=== PATIENT | male | born 1965 | race Caucasian/White ===

== ENCOUNTER 2016-12-31 08:10 | Day surgery (SDC) | payer OTHER ==
[2016-12-31 08:14] VITALS: TEMP 97.7
--- NOTE | 2016-12-31 08:23 | EDPHY ---
HPI/HX/ROS/PE/MDM Narrative: CHIEF COMPLAINT: Palpitations HPI: The patient is a 51-year-old male with history of atrial fibrillation who complains of palpitations that started at 7:30 a.m. this morning. The patient was sitting at work and felt arrhythmias. This morning the patient had a 1/2 cup of coffee. No recent drug use. The patient has experienced two previous episodes of atrial fibrillation, both required cardioversion. His last episode was in October 2016. REVIEW OF SYSTEMS: Aside from elements discussed in the HPI, a comprehensive 10-point review of systems was reviewed and is negative. PMH: Atrial fibrillation, GERD SOCIAL HISTORY: . PHYSICAL EXAM: General: Patient is alert, in no acute distress. ENT: Eyes are normal to inspection. ENT inspection normal. Neck: Normal inspection. Full range of motion. Respiratory: No respiratory distress. Breath sounds normal bilaterally. Cardiovascular: Tachycardic, irregularly irregular. Abdomen: The abdomen is nontender to palpation. There are no peritoneal signs. There are normal bowel sounds. Back: Normal to inspection. No tenderness to palpation. Skin: Normal color. No rash. Warm and dry. Extremities: Normal appearance. Full range of motion. Neuro: Oriented x3. Normal motor function. Normal sensory function. ED Course: Patient presents with atrial fibrillation. Rate around the 190s. EKG was ordered and interpreted by myself, atrial fibrillation. Please see [employer] system for official reading. Patient was placed on the executive cyber leader. Patient received 20mg IV Diltiazem, rate decreased to 120s, but continues to jump up to 150s. 0900: I spoke to Kirk from [facility], he will come evaluate the patient. He last ate breakfast at 7:30 a.m. Patient's current rate is in the 120s. 1000: Patient was started on diltiazem drip. Pressure 112/81. MDM: This patient presents in rapid atrial fibrillation, controlled with IV diltiazem. He is hemodynamically stable. There is no evidence for ACS, PE, PTX , CT or thyroid storm. - Data Points Laboratory Results: Laboratory Results 12/31/16 08:30 12/31/16 08:30 12/31/16 12/31/16 12/31/16 08:30 08:30 08:30 WBC 9.18 10^3/uL 10^3/uL (3.80-9.50) RBC 5.36 10^6/uL 10^6/uL (4.40-6.38) Hgb 16.4 g/dL g/dL (13.7-17.5) Hct 46.6 % % (40.0-51.0) MCV 86.9 fL fL (81.5-99.8) MCH 30.6 pg pg (27.9-34.1) MCHC 35.2 g/dL g/dL (32.4-36.7) RDW 13.7 % % (11.5-15.2) Plt Count 409 10^3/uL H 10^3/uL (150-400) MPV 9.4 fL fL (8.7-11.7) Neut % (Auto) 54.3 % % (39.3-74.2) Lymph % (Auto) 31.7 % % (15.0-45.0) [place] % (Auto) 10.9 % % (4.5-13.0) Eos % (Auto) 1.6 % % (0.6-7.6) Baso % (Auto) 1.0 % % (0.3-1.7) Nucleat RBC Rel Count 0.0 % % (0.0-0.2) Absolute Neuts (auto) 4.98 10^3/uL 10^3/uL (1.70-6.50) Absolute Lymphs (auto) 2.91 10^3/uL 10^3/uL (1.00-3.00) Absolute Monos (auto) 1.00 10^3/uL H 10^3/uL (0.30-0.80) Absolute Eos (auto) 0.15 10^3/uL 10^3/uL (0.03-0.40) Absolute Basos (auto) 0.09 10^3/uL 10^3/uL (0.02-0.10) Absolute Nucleated RBC 0.00 10^3/uL 10^3/uL (0-0.01) Immature Gran % 0.5 % % (0.0-1.1) Immature Gran # 0.05 10^3/uL 10^3/uL (0.00-0.10) PT 12.8 SEC SEC (12.0-15.0) INR 0.97 (0.83-1.16) APTT 26.3 SEC SEC (23.0-38.0) Sodium 141 mEq/L mEq/L (134-144) Potassium 4.2 mEq/L mEq/L (3.5-5.2) Chloride 106 mEq/L mEq/L (97-110) Carbon Dioxide 21 mEq/l L mEq/l (22-31) Anion Gap 14 mEq/L mEq/L (8-16) BUN 16 mg/dL mg/dL (7-23) Creatinine 0.8 mg/dL mg/dL (0.7-1.3) Estimated GFR > 60 Glucose 100 mg/dL mg/dL (70-100) Calcium 10.1 mg/dL mg/dL (8.5-10.4) TSH 0.542 uIU/mL uIU/mL (0.465-4.680) Medications Given: Discontinued Medications Diltiazem HCl (Cardizem 25 Mg/5 Ml Vial) 20 mg IVP EDNOW ONE Stop: 12/31/16 08:26 Last Admin: 12/31/16 08:30 Dose: 20 mg Diltiazem HCl 125 mg/ Dextrose 125 mls @ 0 mls/hr IV EDNOW ONE; As Directed PRN Reason: Protocol Stop: 12/31/16 09:33 Last Admin: 12/31/16 10:35 Dose: 125 mls Sodium Chloride (Ns) 1,000 mls @ 0 mls/hr IV ONCE ONE PRN Reason: Wide Open Stop: 12/31/16 10:23 Last Admin: 12/31/16 09:30 Dose: 1,000 mls General Time Seen by Provider: 12/31/16 08:16 Initial Vital Signs: Initial Vital Signs Temperature (C) 36.5 C 12/31/16 08:12 Heart Rate 115 H 12/31/16 08:12 Respiratory Rate 20 12/31/16 08:12 Blood Pressure 116/92 H 12/31/16 08:12 O2 Sat (%) 96 12/31/16 08:12 O2 Delivery Mode Room Air Allergies/Adverse Reactions: No Known Allergies Allergy (Verified 12/31/16 08:11) Home Medications: Medication Instructions Recorded Aspirin [Aspirin 81mg (*)] 81 mg PO DAILY 09/26/15 Esomeprazole Mag Trihydrate 40 mg PO DAILY 09/26/15 [Nexium] Multivitamins [Multivitamin (*)] 1 each PO DAILY 09/26/15 [place]-3 Fatty Acids [Fish Oil 1000 1,000 mg PO DAILY 09/26/15 mg (*)] Departure - Departure Disposition: To OP Cath/Surgery Clinical Impression: Atrial fibrillation Qualifiers: Atrial fibrillation type: unspecified Qualified Code(s): I48.91 - Unspecified atrial fibrillation Condition: Fair Report Scribed for: Jomar Erazo Report Scribed by: Genoveva Corrigan Date of Report: 12/31/16 Time of Report: 08:21 Physician Review and Approval Statement: Portions of this note were transcribed by a medical detail representative. I personally performed a history, physical exam, medical decision making, and confirmed accuracy of information the transcribed note.
[2016-12-31] MEDS ORDERED: DILTIAZEM 25 MG/5 ML VIAL IVP ONE (08:25)
--- NOTE | 2016-12-31 08:25 | CPEKG ---
Heart Rate: 166 RR Interval: 361 QRSD Interval: 70 QT Interval: 284 QTC Interval: 473 QRS [place]: 19 T Wave [place]: 66 EKG Severity - ABNORMAL ECG - EKG Impression: ATRIAL FIBRILLATION WITH RAPID V-RATE EKG Impression: VENTRICULAR PREMATURE COMPLEX EKG Impression: ST DEPRESSION, PROBABLY RATE RELATED EKG Impression: ATRIAL FIBRILLATION IS NEW IN COMPARISON TO PRIOR (26-SEP-15) Electronically Signed By: Jorge Mahmood 01-Jan-2017 09:06:18
[2016-12-31 08:43] LABS: % IMMATURE GRANULYOCYTES 0.5 % (0.0-1.1); ABSOLUTE IMMATURE GRANULOCYTES 0.05 10^3/uL (0.00-0.10); ADD DIFF? NO; ADD MORPH? NO; ADD SCAN? NO; ATYPICAL LYMPHOCYTE FLAG 20 (0-99); FRAGMENT RBC FLAG 0 (0-99); HEMATOCRIT 46.6 % (40.0-51.0); HEMOGLOBIN 16.4 g/dL (13.7-17.5); LEFT SHIFT FLG 0 (0-99); LIPEMIA HEMOLYSIS FLAG 90 (0-99); MEAN CELL HEMOGLOBIN 30.6 pg (27.9-34.1); MEAN CELL HEMOGLOBIN CONCENTR. 35.2 g/dL (32.4-36.7); MEAN CELL VOLUME 86.9 fL (81.5-99.8); MEAN PLATELET VOLUME 9.4 fL (8.7-11.7); PLATELET CLUMPS FLAG 10 (0-99); PLATELET COUNT 409 10^3/uL (150-400); RED BLOOD CELL COUNT 5.36 10^6/uL (4.40-6.38); RED CELL DISTRIBUTION WIDTH 13.7 % (11.5-15.2)
[2016-12-31 08:45] VITALS: RESP 16
[2016-12-31 08:51] LABS: INR 0.97 (0.83-1.16); PROTIME(PATIENT) 12.8 SEC (12.0-15.0)
[2016-12-31 08:52] LABS: APTT 26.3 SEC (23.0-38.0)
[2016-12-31 09:10] LABS: ANION GAP 14 mEq/L (8-16); CALCIUM 10.1 mg/dL (8.5-10.4); CARBON DIOXIDE 21 mEq/l (22-31); CHLORIDE 106 mEq/L (97-110); CREATININE 0.8 mg/dL (0.7-1.3); GLOMERULAR FILTRATION RATE > 60; GLUCOSE 100 mg/dL (70-100); POTASSIUM 4.2 mEq/L (3.5-5.2); SODIUM 141 mEq/L (134-144)
[2016-12-31] MEDS: DILTIAZEM 125 MG in D5W 125 ML IV ONE ×3 (10:03→10:35)
[2016-12-31] MEDS ORDERED: NS 1,000 ML IV ONE (10:22)
[2016-12-31] MEDS ORDERED: NS 1,000 ML IV SCH (10:30)
[2016-12-31] MEDS ORDERED: APIXABAN 5 MG TAB PO SCH (11:00)
--- NOTE | 2016-12-31 12:29 | GCON ---
[f rep st] CONSULTATION CARDIOLOGY CONSULTATION. INDICATION FOR CARDIOLOGY CONSULTATION: Atrial fibrillation with rapid ventricular response. HISTORY OF PRESENT ILLNESS: The patient is a 51-year-old male with known history of paroxysmal atrial fibrillation. First initial event was September 2015. He reports today, he was in his normal state of health. He had gone to work, just sat down after eating a mild breakfast and starting a half cup of coffee, felt his heart rate accelerate fairly quickly, similar symptoms to what he had in the past. Denies any chest pain or pressure. Reports no lightheadedness, near-syncope, or syncopal events. Due to feeling these similar symptoms of when he was in atrial fibrillation in the past, he came to the emergency department for further evaluation. Upon arrival, electrocardiogram was done, showing that he was in atrial fibrillation with RVR. It has been noted on continuous telemetry that he has had rates up to 190 BPM. He was initially given some IV diltiazem and started on an IV drip. He currently reports no chest pain or shortness of breath. In the past, during his initial event, he did have an echocardiogram done, that was done on September 26, 2015, which showed hyperdynamic LV, EF of 80%, no regional wall motion abnormalities, RV normal size and function, LA and RA normal size, trace TR, RVSP within normal limits. He reports after his most recent episode of atrial fibrillation, October of this year, he was seen at [facility] Emergency Department. He did follow up with Cardiology there, Dr. Solange Cedeño. He did undergo stress testing, which he was told normally. He has not seen her for followup, and he was planning to do a 2-week event monitor, in which the monitor failed, and he has not had any further followup. He also has history last year of undergoing a 30-day monitor , with no significant arrhythmias. As for a CHADS-VASc score, he is considered a zero, he reports. Cardiac risk factors include age and previous smoker. PAST MEDICAL HISTORY: Includes GERD and paroxysmal atrial fibrillation. PAST SURGICAL HISTORY: Cholecystectomy, 2 hospitalizations for atrial fibrillation with RVR, in which he has had LAI, cardioversions for. FAMILY HISTORY: Patient reports no significant family history of coronary artery disease. He reports he never knew his father; so he is uncertain about his paternal family side's history. SOCIAL HISTORY: Patient reports he previously used tobacco but has quit for greater than 20 years. He occasionally has 1 to 2 alcoholic beverages a week. Denies any illicit drug use. He does report a significant amount of coffee intake, reporting up to 4 cups on a daily basis. He is retired [employer]. He is currently working for the [employer] [facility] [employer] [facility]'s [employer] program. He has 3 grown children, who have no medical problems, and 2 grandchildren. He denies any illicit drug use. ALLERGIES: Patient has no known drug allergies. HOME MEDICATIONS: Aspirin 81 mg p.o. q. day, Nexium 40 mg p.o. daily, multivitamin 1 tab daily, and [place]-3 fatty acids 1000 mg p.o. daily. REVIEW OF SYSTEMS: Ten-point review of systems done on this patient all negative, except as mentioned above. PHYSICAL EXAMINATION: GENERAL APPEARANCE: Medium built, well-groomed male. He is alert and oriented to person, place, time, and situation. Appears to be under no acute distress. VITAL SIGNS: Blood pressure 115/93, heart rate of 153 (atrial fibrillation on the monitor), respirations 16, saturating 96% on room air. HEENT: Head is normocephalic. Lips and tongue are pink and moist with no signs of cyanosis. Conjunctivae pink. NECK: Trachea is midline, +2 carotid pulses bilateral. No auscultated bruits. No jugular vein distention. RESPIRATORY: Lungs clear to auscultation. No rhonchi, rales, or wheezes. No accessory muscle use. No intercostal muscle retraction noted. CARDIAC: Tachy rate, irregular rhythm. S1, S2. No S3, S4, gallops, rubs, or murmur noted. ABDOMEN: Soft, nontender. Bowel sounds x4 quadrants. No organomegaly, no palpable masses. SKIN: [place], warm, dry. No cyanosis, no clubbing, no peripheral edema. VASCULAR: Carotids +2 bilateral, +2 radials bilateral, +2 posterior tibial pulses bilateral. LABORATORY STUDIES: Drawn today show WBC 9.18, hemoglobin is 16.4, hematocrit of 46.6, platelet count 409. INR of 0.97. Sodium 141, potassium 4.2, chloride 106, CO2 21, BUN 16, creatinine 0.8, glucose of 100, calcium 10.1. TSH 0.542. STUDIES: Electrocardiogram done on admission showed atrial fibrillation with rapid ventricular response. Ventricular rate has been noted up to 190 beats per minute. Previous echocardiogram, done on September 26, 2015, showing hyperdynamic LV with EF at 80%, no regional wall motion abnormalities, RV normal size and function, LA size is normal, RA size is normal, trace TR, RVSP within normal limits. No other significant valvular or structural heart disease noted. ASSESSMENT AND PLAN: Atrial fibrillation with rapid ventricular response. The patient is known to have paroxysmal atrial fibrillation. Laboratory studies show that he is not anemic. His electrolytes and renal function within normal limits. TSH within normal limits. We will have him get a magnesium level, which has not been drawn today. Patient has eaten at 8 o'clock. He has reported that he has had 2 prior admissions in which medication has been tried to convert, which he has had no success for. He has currently had a diltiazem bolus, and he is being up-titrated on a Cardizem drip. He did eat around 7:30 this morning. Patient reports that he does not want to stay the night to see if medication therapy works. We will offer him to undergo LAI cardioversion later this afternoon around 4 p.m., after he has been n.p.o. for 8 hours, which he is agreeable with. He has a CHADS-VASc score of zero. I do think it would be valid, but due to him getting a cardioversion and recent episodes of atrial fibrillation, we will plan on starting him on anticoagulation with Eliquis. We will plan for him to be on this medication for 30 days postcardioversion due to being at a high risk of thrombotic event after cardioversion. I have requested that we get his recent stress test from [facility] for evaluation. Patient has never been placed on any AV minoo agents after either prior 2 episodes of atrial fibrillation. We will consider starting him on oral diltiazem after cardioversion, if successful. We will plan for the patient to be transferred up to the [facility] for the procedure. Risks and benefits of LAI/ cardioversion explained to both patient and his , and they verbalize understanding and are wanting to proceed. Thank you for this consultation. More recommendations will come up post- cardioversion. /[id number]/MODL MTDD
[2016-12-31 12:38] VITALS: BP 107/67; PULSE 91; O2SAT 95
[2016-12-31] MEDS ORDERED: ATROPINE SULFATE 1 MG/10 ML SYR ONE (13:25)
[2016-12-31] MEDS ORDERED: LIDOCAINE 1% 5 ML SDV ONE (17:25)
[2016-12-31] MEDS ORDERED: PROPOFOL 200 MG/20 ML VIAL ONE (17:25)
--- NOTE | 2016-12-31 18:10 | CPIP ---
[f rep st] INVASIVE CARDIAC PROCEDURE DATE OF PROCEDURE: 12/31/2016 PROCEDURE: LAI cardioversion. INDICATION: Atrial fibrillation. ANESTHESIA: Please see Anesthesia report. CONSENTS: Signed and in front of chart. SPECIFICS: 1. LAI probe was advanced and images obtained. There is no evidence of thrombus in the left atrium or left atrial appendage. Left atrial appendage velocities were greater than 20 cm/second. 2. Pads were placed in the anterior-posterior position. 3. Two hundred joules synchronized was delivered x1 with return to normal sinus rhythm. COMPLICATIONS: None. CONCLUSIONS: 1. No evidence of left atrial or left atrial appendage thrombus. 2. Status post successful DC cardioversion to normal sinus rhythm with 200 joules. /[id number]/MODL
[2016-12-31] MEDS ORDERED: DILTIAZEM CD 180 MG CAP PO ONE (18:15)
== END 2016-12-31 19:05 | disposition home or self-care (01) ==
LOC: FCATH 13:01
PROVIDERS: ATTEND Internal Medicine Cardiovascular Disease
PROC: 5A2204Z Restoration of Cardiac Rhythm, Single (ICD-10-PCS; principal; 2016-12-31)
DX: I48.91 Unspecified atrial fibrillation (principal)
CPT/HCPCS: 96374; J0461; J2704

== ENCOUNTER 2017-03-27 05:15 | Observation (INO) | payer OTHER ==
--- NOTE | 2017-03-27 05:21 | EDPHY ---
H & P HPI/ROS: HPI CHIEF COMPLAINT: Palpitations HISTORY OF PRESENT ILLNESS: This patient very pleasant 51-year-old male, he is otherwise healthy significant past medical history for atrial fibrillation, he is not on any anticoagulation. He has had previous LAI cardioversion speech. He presents emergency room palpitations started around 1030 last night he thinks. He tried to sleep most of the night last night to see will go away. He did take a baby aspirin in additionally diltiazem dose. He is not on any anticoagulation. Does state he had some shortness of breath associated with this. No significant chest pain. He states he thinks he is in atrial fibrillation as he is irregular fast heart rate. Past Medical History: History of atrial fibrillation status post cardioversion , GERD Past Surgical History: Cholecystectomy Social History: Denies daily use of drugs alcohol tobacco products. Family History: Denies any significant family cardiovascular disease ROS REVIEW OF SYSTEMS: A comprehensive 10 point review of systems is otherwise negative aside from elements mentioned in the history of present illness. Exam Constitutional triage nursing summary reviewed, vital signs reviewed, awake/ alert. Eyes normal conjunctivae and sclera, EOMI, PERRLA. HENT normal inspection, atraumatic, moist mucus membranes, no epistaxis, neck supple/ no meningismus, no raccoon eyes. Respiratory clear to auscultation bilaterally, normal breath sounds, no respiratory distress, no wheezing. Cardiovascular irregular, irregular rhythm, no murmur, no edema, distal pulses normal. Gastrointestinal soft, non-tender, no rebound, no guarding, normal bowel sounds, no distension, no pulsatile mass. Genitourinary no CVA tenderness. Musculoskeletal no midline vertebral tenderness, full range of motion, no calf swelling, no tenderness of extremities, no meningismus, good pulses, neurovascularly intact. Skin pink, warm, & dry, no rash, skin atraumatic. Neurologic awake, alert and oriented x 3, AAOx3, moves all 4 extremities equally, motor intact, sensory intact, CN II-XII intact, normal cerebellar, normal vision, normal speech. Psychiatric normal mood/affect. Heme/Lymph/Immune no lymphadenopathy. 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 Re-evaluate. Re-evaluation: EKG interpretation by me on record in [employer] system. Impression time of EKG 5:32 a.m., this is AFib rate of 115. AFib with RVR. I dont appreciate acute ischemic change. 0611AM: Patient is currently on a diltiazem drip heart rate in the 90s. Fluctuates to low 100s. He did come in with a heart rate of 122. AFib. He is not on anticoagulation. Will attempt rate control at this time. He will be admitted to the hospital for AFib with RVR. Will most likely need echocardiogram and possible cardioversion. Cardiology to see. ED x-ray chest one view: Negative for acute cardiopulmonary disease. 0647AM: Patient agrees for hospital admission. Reason for admission AFib with RVR. Not on any anticoagulation. Currently being rate controlled on diltiazem but still in AFib. Dr. Moise has accepted. Source: Patient - Medical/Surgical History Hx Asthma: No Hx Chronic Respiratory Disease: No Hx Diabetes: No Hx Cardiac Disease: Yes Hx Renal Disease: No Hx Cirrhosis: No Hx Alcoholism: No Hx HIV/AIDS: No Hx Splenectomy or Spleen Trauma: No Other PMH: GERD afib - Social History Smoking Status: Former smoker Constitutional: Initial Vital Signs Temperature (C) 36.4 C 03/27/17 05:20 Heart Rate 102 H 03/27/17 05:20 Respiratory Rate 16 03/27/17 05:20 Blood Pressure 110/83 H 03/27/17 05:20 O2 Sat (%) 96 03/27/17 05:20 O2 Delivery Mode Nasal Cannula O2 (L/minute) 2 Allergies/Adverse Reactions: No Known Allergies Allergy (Verified 03/27/17 05:18) Home Medications: Medication Instructions Recorded Multivitamins [Multivitamin (*)] 1 each PO DAILY 09/26/15 Diltiazem HCl [Diltiazem 24Hr Cd] 240 mg PO DAILY 12/31/16 Aspirin EC [Aspirin EC 81 mg (*)] 81 mg PO DAILY 03/27/17 Omeprazole 40 mg PO DAILY 03/27/17 Medical Decision Making - Data Points Laboratory Results: Laboratory Results 03/27/17 05:40 03/27/17 05:40 Medications Given: Discontinued Medications Diltiazem HCl (Cardizem 25 Mg/5 Ml Vial) 15 mg IVP EDNOW ONE Stop: 03/27/17 05:33 Last Admin: 03/27/17 05:45 Dose: 15 mg Sodium Chloride (Ns) 1,000 mls @ 0 mls/hr IV EDNOW ONE; Wide Open PRN Reason: Protocol Stop: 03/27/17 05:31 Last Admin: 03/27/17 05:44 Dose: 1,000 mls Diltiazem HCl 125 mg/ Dextrose 125 mls @ 0 mls/hr IV EDNOW ONE; As Directed PRN Reason: Protocol Stop: 03/27/17 05:33 Last Admin: 03/27/17 05:49 Dose: 125 mls Pantoprazole Sodium (Protonix) 40 mg PO DAILY [facility] Stop: 09/23/17 08:59 Last Admin: 03/27/17 09:37 Dose: 40 mg Departure - Departure Disposition: [facility] Clinical Impression: Atrial fibrillation with RVR Atrial fibrillation Qualifiers: Atrial fibrillation type: unspecified Qualified Code(s): I48.91 - Unspecified atrial fibrillation Condition: Good
[2017-03-27] MEDS ORDERED: NS 1,000 ML IV ONE (05:30)
[2017-03-27] MEDS ORDERED: DILTIAZEM 125 MG in D5W 125 ML IV ONE (05:32)
[2017-03-27] MEDS ORDERED: DILTIAZEM 25 MG/5 ML VIAL IVP ONE (05:32)
--- NOTE | 2017-03-27 05:34 | CPEKG ---
Heart Rate: 115 RR Interval: 522 QRSD Interval: 68 QT Interval: 332 QTC Interval: 460 QRS [place]: 26 T Wave [place]: 50 EKG Severity - ABNORMAL ECG - EKG Impression: ATRIAL FIBRILLATION, V-RATE 72-150 Electronically Signed By: Tom Casas 27-Mar-2017 07:35:46
[2017-03-27 05:56] LABS: % IMMATURE GRANULYOCYTES 0.5 % (0.0-1.1); ABSOLUTE IMMATURE GRANULOCYTES 0.04 10^3/uL (0.00-0.10); ADD DIFF? NO; ADD MORPH? NO; ADD SCAN? NO; ATYPICAL LYMPHOCYTE FLAG 10 (0-99); FRAGMENT RBC FLAG 0 (0-99); HEMATOCRIT 47.6 % (40.0-51.0); LEFT SHIFT FLG 0 (0-99); LIPEMIA HEMOLYSIS FLAG 90 (0-99); MEAN CELL HEMOGLOBIN 30.6 pg (27.9-34.1); MEAN CELL HEMOGLOBIN CONCENTR. 35.7 g/dL (32.4-36.7); MEAN CELL VOLUME 85.6 fL (81.5-99.8); MEAN PLATELET VOLUME 9.3 fL (8.7-11.7); PLATELET CLUMPS FLAG 0 (0-99); PLATELET COUNT 426 10^3/uL (150-400); RED BLOOD CELL COUNT 5.56 10^6/uL (4.40-6.38); RED CELL DISTRIBUTION WIDTH 13.3 % (11.5-15.2)
[2017-03-27 05:59] VITALS: O2SAT 98
[2017-03-27 06:07] LABS: ALANINE AMINOTRANSFERASE 78 IU/L (21-72); ALBUMIN 4.5 g/dL (3.5-5.0); ALKALINE PHOSPHATASE 88 IU/L (38-126); ANION GAP 15 mEq/L (8-16); ASPARTATE AMINOTRANSFERASE 41 IU/L (17-59); BILIRUBIN,TOTAL 0.7 mg/dL (0.1-1.4); BILIRUBIN-CONJUGATED 0.2 mg/dL (0.0-0.5); BILIRUBIN-UNCONJUGATED 0.5 mg/dL (0.0-1.1); CALCIUM 10.1 mg/dL (8.5-10.4); CARBON DIOXIDE 22 mEq/l (22-31); CHLORIDE 106 mEq/L (97-110); CREATININE 0.9 mg/dL (0.7-1.3); GLOMERULAR FILTRATION RATE > 60; GLUCOSE 109 mg/dL (70-100); MAGNESIUM 2.1 mg/dL (1.6-2.3); POTASSIUM 4.2 mEq/L (3.5-5.2); SODIUM 143 mEq/L (134-144); TOTAL PROTEIN 7.8 g/dL (6.3-8.2)
[2017-03-27 06:11] LABS: INR 0.98 (0.83-1.16); PROTIME(PATIENT) 12.9 SEC (12.0-15.0)
[2017-03-27 06:12] LABS: APTT 27.8 SEC (23.0-38.0)
[2017-03-27 06:19] LABS: CREATINE KINASE-MB FRACTION 0.88 ng/mL (0.00-3.19); TROPONIN I < 0.012 ng/mL (0.000-0.034)
[2017-03-27] MEDS ORDERED: ONDANSETRON 4 MG/2 ML VIAL IVP PRN (07:50)
[2017-03-27] MEDS ORDERED: LORazepam 0.5 MG TAB PO PRN (07:50)
[2017-03-27] MEDS ORDERED: ONDANSETRON DISINTEGRATING 4 MG TAB PO PRN (07:50)
[2017-03-27] MEDS ORDERED: ACETAMINOPHEN 325 MG TAB PO PRN (07:50)
[2017-03-27] MEDS ORDERED: NS 1,000 ML IV SCH (08:00)
[2017-03-27] MEDS ORDERED: DILTIAZEM 125 MG in D5W 125 ML IV SCH (08:00)
[2017-03-27 08:22] VITALS: BP 106/65; PULSE 77; RESP 14; TEMP 97.9
--- NOTE | 2017-03-27 08:40 | GHP ---
[f rep st] HISTORY AND PHYSICAL DATE OF ADMISSION: 03/27/2017 SOURCE: Patient provides history, appears reliable. His EMR was also reviewed and case discussed wi th ED provider. CHIEF COMPLAINT: Palpitations. HISTORY OF PRESENT ILLNESS: This is a very pleasant 51-year-old gentleman with past medical history significant for atrial fibrillation, status post 4 attempts at cardioversion, presents to the emergen cy department today with complaints of palpitations that started approximately 10:30 at night. Ritikashirley nt reports that he was going to bed when he started to experience symptoms. He denies any associated chest pain, lightheadedness, nausea, vomiting, or diaphoresis. He does note this slight shortness o f breath. The patient states that he took a dose of aspirin, and an additional dose of diltiazem megan or to going to bed, in hopes that his heart rate would remain under control. He chronically does lisa e diltiazem 180 mg p.o. daily, but is not on any chronic anticoagulation. The patient states that hi s last cardioversion occurred in December, and has not had any symptoms up until today. REVIEW OF SYSTEMS: GENERAL: Patient denies any fevers, chills. SKIN: No rashes, sores. ENT: No sore throat, rhinorrhea. CV: Palpitations. No chest pain. As above. RESPIRATORY: Mild intermittent shortness of breath, but no cough. GI: No nausea, vomiting, abdominal pain, diarrhea. : No dysuria or hematuria. MUSCULOSKELETAL: Patient denies any joint pain or myalgias. NEURO: Patient denies any headache, numbness, or tingling. The remainder of systems is negative, ex cept as noted above. ALLERGIES: No known drug allergies. HOME MEDICATIONS: Fish oil 1000 mg p.o. daily, multivitamin 1 tab p.o. daily, diltiazem 180 mg p.o. daily. PAST MEDICAL HISTORY: Significant for atrial fibrillation. PAST SURGICAL HISTORY: Significant for LAI and cardioversion x4, cholecystectomy. FAMILY HISTORY: The patient denies any known coronary artery disease. Parents and children are all healthy. SOCIAL HISTORY: Patient is . Denies any tobacco or drug use. He has very rare alcohol intak e. CODE STATUS: Full. Patient without advance directives, wants his to act as proxy. PHYSICAL EXAM: VITAL SIGNS: On arrival, blood pressure 106/76, heart rate on presentation was 120s to 130s, respiratory rate 18, O2 saturation 98% on 2 L by nasal cannula. Current vitals: Temperatur e 36.0, blood pressure 103/72, heart rate 80, respiratory rate 16, O2 saturation 98% on 2 L by nasal cannula. GENERAL: No acute distress, pleasant adult male, resting comfortably on gurney, the i s at bedside. HEAD: Normocephalic atraumatic. EYES: Extraocular muscles are intact. Pupils equal , round, reactive to light bilaterally and symmetric. No scleral icterus or conjunctival injection. ENT: Mucous membranes are moist. No pharyngeal erythema or exudates. CV: Irregularly irregular r hythm with normal rate in the 80s. No murmurs, rubs, or gallops appreciated. RESPIRATORY: Lungs cl ear to auscultation bilaterally. No wheezes, rales, or rhonchi. ABDOMEN: Positive bowel sounds. S oft, nontender to palpation. No rebound, guarding, or masses. : No Linares in place. No suprapubi c tenderness to palpation. EXTREMITIES: No cyanosis, clubbing, or edema. 2+ pedal pulses. MUSCULO SKELETAL: Strength 5/5 in upper and lower extremities. Patient able to sit up independently. NEURO : Grossly nonfocal exam, without any facial drooping or changes in strength. PSYCH: Patient is awake, alert, and oriented x3. Thought process, content and questions are appropriate. LABORATORY STUDIES: WBC is 8.75, H and H 17.0, 47.6, MCV 85.6, platelet count of 426. No bands. PT is 12.9, INR 0.9, APTT is 27.8. Sodium 143, potassium 4.2, chloride 106, CO2 22, BUN is 11, creat inine 0.9, GFR is greater than 60. Glucose 109, calcium 10.1, magnesium 2.1. Total bilirubin 0.7, t otal protein 7.8, albumin 4.5, ALT is 78, AST is 41, alk phos 88. CK 73, CK-MB 8.88, and troponin le ss than 0.012. BNP is 120. EKG, reviewed myself, significant for atrial fibrillation, rate 1-teens. Chest x-ray, image reviewed myself. Report is pending. No gross abnormalities. ASSESSMENT/PLAN: A pleasant 51-year-old gentleman with history of atrial fibrillation, who presents with palpitations. 1. Atrial fibrillation with rapid ventricular response. The patient has received a bolus dosing of Cardizem in the emergency department and a Cardizem drip. We will plan to continue. Consult Cardiol kaylan. He is not currently on any chronic anticoagulation, and again we will also discuss with Cardiol kaylan. Blood pressures at this time appear to tolerate the Cardizem drip, and we will continue to alexander tor. We will give patient a little bit of IV fluid hydration, in addition to the Cardizem drip. He will remain n.p.o. for now, pending consideration for Cardiology, regarding if additional cardioversi on is appropriate. Electrolyte replacement if needed, but currently within normal limits. 2. Prophylaxis, SCDs, and discussion on anticoagulation with Cardiology as above. 3. Code status is full. 4. Disposition: Patient admitted to observation on PCU. /[id number]/MODL
[2017-03-27] MEDS ORDERED: PANTOPRAZOLE SODIUM 40 MG TAB PO SCH (09:00)
--- NOTE | 2017-03-27 11:10 | GCON ---
[f rep st] CONSULTATION CARDIOLOGY CONSULTATION DATE OF CONSULTATION: 03/27/2017 REFERRING PHYSICIAN: Radha Moise MD REASON FOR CONSULTATION: Paroxysmal atrial fibrillation. HISTORY OF PRESENT ILLNESS: The patient is a pleasant 51-year-old gentleman with a known past medical history of paroxysmal atrial fibrillation over the last several years. He has undergone 4 cardioversions in the past secondary to symptomatic paroxysmal atrial fibrillation. He is currently on a rate-control strategy with diltiazem 180 mg once daily and aspirin 81 mg daily. He states he was in his usual state of health until yesterday when he had acute onset of atrial fibrillation. This episode was associated with some mild shortness of breath and fatigue. He presented to [facility] secondary to the fact that this episode persisted longer than his usual episodes. At the time of his arrival, this episode had been occurring for at least 6 hours. He was admitted to [facility]. He was started on diltiazem drip , and this morning he spontaneously converted to normal sinus rhythm at 78 beats per minute. [id number] of zero, he is currently on aspirin 81 mg daily. REVIEW OF SYSTEMS: Currently, at the time of my exam, he is resting comfortably without complaint. He is in sinus rhythm at 78 beats per minute. He denies complaints of chest pain, chest pressure, shortness of breath, dyspnea , PND, orthopnea, or lower extremity edema. He has no complaints of dizziness, lightheadedness, near syncope, or syncope. He denies complaints of abdominal pain, back pain, flank pain. No complaints of PND, orthopnea, or lower extremity edema. Remainder of 10 point review of systems is negative. MEDICATIONS ON ADMISSION: 1. Diltiazem 180 mg once daily. 2. Aspirin 81 mg daily. 3. Multivitamin. 4. Fish oil 1000 mg daily. ALLERGIES TO MEDICATIONS: None. PAST MEDICAL HISTORY: Paroxysmal atrial fibrillation, status post LAI cardioversion x4. PAST SURGICAL HISTORY: Cholecystectomy. FAMILY HISTORY: No family history of premature coronary artery disease or atrial fibrillation. SOCIAL HISTORY: He is . He is retired from the . 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 He is a lifelong nonsmoker. He occasionally drinks alcohol. PHYSICAL EXAMINATION: VITAL SIGNS: Blood pressure 106/65, heart rate of 78 in normal sinus rhythm, respiratory rate 14, oxygen saturation 98% on 2 L nasal cannula, temperature 36.6. CONSTITUTIONAL: Awake, alert, oriented, and appropriate, in no apparent distress. NECK: No evidence of or carotid bruits. LUNGS: Clear to auscultation bilaterally. CARDIAC: S1, S2. Regular rate and rhythm. No murmurs, rubs, or gallops. PMI is not displaced. ABDOMEN: Soft, nontender, nondistended. No pulsatile mass or abdominal bruit. EXTREMITIES: No evidence of cyanosis, clubbing, or edema. No skin rashes. NEUROLOGIC: He is intact. Awake, alert, oriented x3. DATA: ECG demonstrates atrial fibrillation at 115 beats per minute with normal intervals and normal axis. Laboratory data: Sodium 143, potassium 4.2, chloride 106, bicarb 22, BUN 11, creatinine 0.9, glucose 109, magnesium 2.1. BNP 120 troponin less than 0.012. Troponin TSH is pending at this time. Chest x-ray: Negative. Telemetry demonstrates atrial fibrillation, now converted to sinus rhythm at 78 beats per minute. IMPRESSION: 1. Paroxysmal atrial fibrillation with history of cardioversion x4. [id number]- VASc score of zero. 2. Possible history of sleep apnea. Patient states he was "borderline" on overnight oximetry. He has never been formally seen by sleep medicine specialist. RECOMMENDATIONS: 1. Patient to be discharged home on aspirin 81 mg daily. 2. Continue diltiazem 180 mg once daily. 3. Recommend consultation with Dr. Mitch Abarca for consideration of atrial fibrillation ablation. 4. Recommend formal consultation with [facility] for formal evaluation of possible underlying sleep apnea. 5. The patient should follow up with me in our office in the next 4-6 weeks. I have given him my contact information. I have reviewed these findings with the patient and his , as well as with Dr. Funes, who was on-call for the hospitalists service today. 6. 30 minutes spent coordinating patient care /[id number]/MODL MTDD
--- NOTE | 2017-03-27 11:17 | PDDCSUM ---
Discharge Summary Discharge Summary: DISCHARGE SUMMARY FOLLOW-UP ITEMS: Schedule follow up with Dr. Mitch Abarca DATE OF ADMISSION: 03/27/2017 DATE OF DISCHARGE: 03/27/2017 DISCHARGE DIAGNOSES: 1. Atrial fibrillation with acute rapid ventricular response CONSULTATIONS: Cardiology by Dr. Antoine Barnes PROCEDURES / IMAGING: Chest x-ray without any infiltrate CHIEF COMPLAINT: Acute palpitations SUBJECTIVE: Patient is feeling well discharge, no palpitations PHYSICAL EXAM ON DISCHARGE: Systolic blood pressure is 100, heart rate 80, afebrile overnight, heart is regular rhythm and rate LABS ON DISCHARGE: PSH 2.2, ALT 80, creatinine 0.9, white blood cell count 8800, potassium 4.2, troponin negative HOSPITAL COURSE BY PROBLEM: Patient presented with recurrent atrial fibrillation and acute rapid ventricular response, in the setting of known paroxysmal atrial fibrillation, status post several cardioversions. The patient's most recent cardioversion was this summer, and between then and now he has been symptom free. Patient experienced unprovoked palpitations and presented to the emergency department. He was placed on a diltiazem drip and he chemically cardioverted into normal sinus mechanism. Was seen in consultation by Dr. Antoine Barnes, and he recommended outpatient electrophysiology consultation to consider ablation. He did not recommend initiating systemic anticoagulation at this time. The patient will be continued on aspirin 81 mg daily as well as home dosage of diltiazem. Will resume this oral medication at this time. DISCHARGE MEDICATIONS: Please see official discharge medication reconciliation sheet in chart , continue all home medications without any changes. DISCHARGE INSTRUCTIONS: Please schedule follow-up with Dr. Mitch Abarca as soon as possible.
--- NOTE | 2017-03-27 15:52 | ASDISCHSUM ---
Discharge Information Plan Status:Home with No Needs Medically Cleared to Leave: Discharge Date:03/27/2017 11:38 AM CM D/C Disposition:Home, Routine, Self-Care ADT D/C Disposition:Home, Routine, Self-Care Projected Discharge Date:03/27/2017 11:38 AM Transportation at D/C: Discharge Delay Reason: Follow-Up Date:03/27/2017 11:38 AM Discharge Slot: Final Diagnosis: Placement Information Patient Contact Information Contact Name:REUBEN Relationship: Address:[address] [place] Work Phone: City:[place] Alternate Phone: [facility]/Zip Code:[place] [address] Email: Financial Information Financial Class:HMO and PPO Plans Primary Plan Desc:[facility] Primary Plan Number:[id number] Secondary Plan Desc: Secondary Plan Number: Assessment Information Intervention Information
== END 2017-03-27 11:38 | disposition home or self-care (01) ==
LOC: INTOOBSV 06:46 → F2N 08:04
PROVIDERS: ADMIT Family Medicine; ATTEND Family Medicine
DX: I48.0 Paroxysmal atrial fibrillation (principal); K21.9 Gastro-esophageal reflux disease without esophagitis; Z79.82 Long term (current) use of aspirin
CPT/HCPCS: 71010; 93005; G0378; 96365; 96366